=== PATIENT | female | born 1935 | race Caucasian/White ===

== ENCOUNTER → 2016-07-20 | Outpatient (CLI) | payer MEDICARE ==
[~2016-07-20] MED LIST: 'XANAX0.25 MG; ALLOPURINOL100 MG; AMARYL4 MG; ANTIVERT25 MG; ASPI-COR81 M1 PO; CORGARD20 MG; DIOVAN80 MG; DIOVAN80 MG PO; EPA FISH OIL1000 MG; GEMCOR600 MG; KLOR-CON 1010 ME1 PO; LANTUS100 U/ML SC; LASIX40 MG PO; LISINOPRIL20 MG PO; LOTREL 5 MG-101 CAP PO; Lopressor25 MG PO; MACROBID100 M1 PO; METFORMIN500 MG; MICRONASE5 MG; NOVOLOG FLEX100 U/ML SC; OMEGA 31000 MG; SIMVASTATIN40 MG; SYNTHROID25 MCG PO; TRAZODONE50 MG PO; VITAMIN D1000 IU; VITAMIN D1000 IU PO
== END | disposition home or self-care (01) ==
LOC: RAD 08:59
DX: S23.41XA Sprain of ribs, initial encounter (principal); R07.81 Pleurodynia

== ENCOUNTER → 2017-05-28 | Outpatient (CLI) | payer MEDICARE | LOC: RESCLI 01:45 | DX: E11.65 Type 2 diabetes mellitus with hyperglycemia (principal); I25.10 Atherosclerotic heart disease of native coronary artery without angina pectoris; I10 Essential (primary) hypertension; E78.5 Hyperlipidemia, unspecified; E03.9 Hypothyroidism, unspecified; F32.9 Major depressive disorder, single episode, unspecified; Z79.4 Long term (current) use of insulin; Z88.2 Allergy status to sulfonamides ==

== ENCOUNTER → 2017-08-06 | Outpatient (CLI) | payer MEDICARE | END | disposition home or self-care (01) | LOC: RESCLI 00:37 | DX: I10 Essential (primary) hypertension (principal); F32.9 Major depressive disorder, single episode, unspecified; E78.00 Pure hypercholesterolemia, unspecified; E55.9 Vitamin D deficiency, unspecified; M1A.9XX0 Chronic gout, unspecified, without tophus (tophi); E03.9 Hypothyroidism, unspecified; E11.65 Type 2 diabetes mellitus with hyperglycemia; I25.10 Atherosclerotic heart disease of native coronary artery without angina pectoris; E78.5 Hyperlipidemia, unspecified; Z79.4 Long term (current) use of insulin; Z88.2 Allergy status to sulfonamides ==

== ENCOUNTER → 2018-05-26 | Outpatient (CLI) | payer MEDICARE ==
[2018-05-26 15:51] LABS: BILIRUBIN NEGATIVE (NEGATIVE); BLOOD TRACE-LYSED (NEGATIVE); CLARITY SL CLOUDY (CLEAR); COLOR YELLOW (YELLOW); GLUCOSE NEGATIVE (NEGATIVE); KETONE NEGATIVE (NEGATIVE); LEUKO ESTERASE 3+ (NEGATIVE); NITRITE NEGATIVE (NEGATIVE); PH 5.5 (5.0-9.0); UROBILINOGEN 0.2 E.U./dl (0.2-1.0)
[2018-05-26 15:58] LABS: BACTERIA 2+; WBC TNTC wbc/hpf (0-5)
== END | disposition home or self-care (01) ==
LOC: LAB 14:56
PROVIDERS: Internal Medicine Nephrology
DX: N18.3 Chronic kidney disease, stage 3 (moderate) (principal); N28.1 Cyst of kidney, acquired

== ENCOUNTER → 2018-07-15 | Outpatient (CLI) | payer MEDICARE | END | disposition home or self-care (01) | LOC: RESCLI 02:15 | DX: I10 Essential (primary) hypertension (principal); F32.9 Major depressive disorder, single episode, unspecified; E78.00 Pure hypercholesterolemia, unspecified; E55.9 Vitamin D deficiency, unspecified; M1A.9XX0 Chronic gout, unspecified, without tophus (tophi); E03.9 Hypothyroidism, unspecified; E11.65 Type 2 diabetes mellitus with hyperglycemia; I25.10 Atherosclerotic heart disease of native coronary artery without angina pectoris; Z79.4 Long term (current) use of insulin; Z79.899 Other long term (current) drug therapy; Z90.710 Acquired absence of both cervix and uterus; Z95.5 Presence of coronary angioplasty implant and graft; Z90.49 Acquired absence of other specified parts of digestive tract; Z88.2 Allergy status to sulfonamides ==

== ENCOUNTER 2019-03-14 20:50 | Inpatient (IN) | payer MEDICARE ==
[~2019-03-14] VITALS: Ht 162.5 cm; Wt 96.0 kg
[~2019-03-14 20:50] MED LIST changes: -ALLOPURINOL100 MG; +ALLOPURINOL100 MG PO; +NOVOLOG FL100 UNIT/2 SQ; -NOVOLOG FLEX100 U/ML SC; -SIMVASTATIN40 MG; +SIMVASTATIN40 MG PO
[2019-03-14 20:57] VITALS: BP 152/74
[2019-03-14 21:10] LABS: BASO % 0.2 % (0.0-1.0); EOS # 0.2 10*3/uL (0.0-0.4); EOS % 1.6 % (1.0-4.0); HEMATOCRIT 31.1 % (37.0-47.0); HEMOGLOBIN 10.3 g/dl (12.0-16.0); LYMPH # 1.7 10*3/uL (1.3-4.4); LYMPH % 13.9 % (27.0-41.0); MEAN CELL VOLUME 87.6 fl (81.0-99.0); MEAN CORPUSCULAR HGB CONC 33.1 g/dl (33.0-37.0); MEAN PLATELET VOLUME 9.5 fl (9.6-12.3); MONO # 0.8 10*3/uL (0.1-1.0); MONO % 6.4 % (3.0-9.0); NEUT # 9.4 10*3/uL (2.3-7.9); NEUT % 77.5 % (47.0-73.0); PLATELET COUNT AUTOMATED 225 10*3/uL (130-400); RED BLOOD COUNT 3.55 10*6/uL (4.10-5.10); RED CELL DISTRI WIDTH 16.2 % (0-14.5); WHITE BLOOD COUNT 12.2 10*3/uL (4.8-10.8)
[2019-03-14 21:21] LABS: ACT PARTIAL THROMBO TIME 28.5 SECONDS (20.0-32.1); INTERNATIONAL NORM RATIO 1.2 (2.0-3.5)
[2019-03-14 21:27] LABS: ALBUMIN 2.8 gm/dl (3.1-4.5); ALKALINE PHOSPHATASE 185 U/L (45-117); BUN 31 mg/dl (7-24); CHLORIDE 103 mmol/L (98-107); CREATININE 1.77 mg/dL (0.55-1.02); SGOT/AST 21 IU/L (3-35); SGPT/ALT 24 U/L (12-78); SODIUM 135 mmol/L (136-145); TOTAL PROTEIN 8.3 gm/dL (6.4-8.2)
[2019-03-14 21:28] LABS: TROPONIN I < 0.015 ng/ml (<0.045)
--- NOTE | 2019-03-14 21:45 | NUR ---
SITTING UP IN BED CONVERSING WITH FRIENDS. APPEARS MUCH MORE RELAXED AND DENIES ANY NEEDS. SIDE RAIL X 1 AND CALL LIGHT WITHIN REACH. FLU SWAB OBTAINED AND SENT. WILL CONTINUE TO MONITOR.
--- NOTE | 2019-03-14 22:38 | NUR ---
BGL 202. DOES NOT WANT HUMALOG AT NIGHT BECAUSE SHE NORMALLY ONLY TAKES LANTUS AT NIGHT.
--- NOTE | 2019-03-14 23:24 | NUR ---
DR HANCOCK IS AT THE BEDSIDE.
[2019-03-15] VITALS (9 sets, daily range): BP systolic 134–166; BP diastolic 39–78
--- NOTE | 2019-03-15 00:14 | NUR ---
AMBULATED TO BATHROOM WITH SUPERVISION. URINATED AND CLEAN MAXI PAD PROVIDED REQUESTED. SUPERVISED BACK TO BED. SOB BUT RECOVERED QUICKLY ONCE IN BED.
--- NOTE | 2019-03-15 00:59 | NUR ---
SNACK PROVIDED REQUESTED.
[2019-03-15] MEDS ORDERED: CITALOPRAM20 MG PO (01:43)
[2019-03-15] MEDS ORDERED: AMLODIPINE BESY10 MG PO (01:43)
[2019-03-15] MEDS ORDERED: BUMETANIDE2 MG PO (01:43)
[2019-03-15] MEDS ORDERED: FAMOTIDINE20 M1 PO (01:44)
[2019-03-15 03:07] LABS: BASO % 0.2 % (0.0-1.0); EOS # 0.1 10*3/uL (0.0-0.4); EOS % 1.3 % (1.0-4.0); HEMATOCRIT 28.5 % (37.0-47.0); HEMOGLOBIN 9.3 g/dl (12.0-16.0); LYMPH # 1.3 10*3/uL (1.3-4.4); LYMPH % 14.6 % (27.0-41.0); MEAN CELL VOLUME 87.7 fl (81.0-99.0); MEAN CORPUSCULAR HGB 28.6 pg (27.0-31.0); MEAN CORPUSCULAR HGB CONC 32.6 g/dl (33.0-37.0); MEAN PLATELET VOLUME 9.6 fl (9.6-12.3); MONO # 0.7 10*3/uL (0.1-1.0); MONO % 7.9 % (3.0-9.0); NEUT # 6.9 10*3/uL (2.3-7.9); NEUT % 75.7 % (47.0-73.0); PLATELET COUNT AUTOMATED 176 10*3/uL (130-400); RED BLOOD COUNT 3.25 10*6/uL (4.10-5.10); RED CELL DISTRI WIDTH 16.5 % (0-14.5); WHITE BLOOD COUNT 9.1 10*3/uL (4.8-10.8)
--- NOTE | 2019-03-15 03:15 | NUR ---
NEURO: A&O X 4 HEENT: TONGUE DRY, HO-CHUNK (R>L) RESP: DIMINISHED, TACHYPNIC WITH EXERTION OTHERWISE REGULAR AND EASY CARDIAC: S1, S2, REGULAR, NSR SKIN: WARM, DRY, APPROPRIATE FOR ETHNICITY BLE: TRACE EDEMA
--- NOTE | 2019-03-15 03:18 | NUR ---
REPOSITIONED SELF TO LEFT SIDE. PULSE OXIMETRY READING 90% ON 2L VIA N/C IN THIS POSITION, SO OXYGEN INCREASED TO 4 L VIA N/C WITH IMPROVEMENT TO 93%.
[2019-03-15 03:22] LABS: ALBUMIN 2.7 gm/dl (3.1-4.5); CREATININE 1.75 mg/dL (0.55-1.02); PHOSPHOROUS 3.7 mg/dL (2.5-4.9); POTASSIUM 3.6 mmol/L (3.5-5.1); TOTAL PROTEIN 7.7 gm/dL (6.4-8.2)
--- NOTE | 2019-03-15 04:30 | NUR ---
AMBULATORY TO THE BATHROOM WITH SUPERVISION BY MINERAL WOOL INSULATION SUPERVISOR.
--- NOTE | 2019-03-15 06:57 | NUR ---
BGL 228. AMBULATORY TO THE BATHROOM WITH SUPERVISION.
--- NOTE | 2019-03-15 07:10 | NUR ---
REPORT FROM NIGEL DENT AT THIS TIME. PATIENT LAYING IN BED AT THIS TIME APPEARS TO BE RESTING.
--- NOTE | 2019-03-15 08:17 | NUR ---
BEDSIDE GIVEN TO BOGDAN DENT AT THIS TIME.
--- NOTE | 2019-03-15 09:05 | NUR ---
A 83, admitted to 5E, under the services of BOBO Neil DO with a diagnosis of CHF. Chief complaint is SOB. Patient arrived via stretcher from ER. Monitor applied. Initial assessment completed. Vital signs taken and recorded. BOBO NEIL DO notified of admission to the unit. Orders received. See assessment for past medical history, medications and allergies. Patient and/or family oriented to unit. visitation policy reviewed. Clothing/patient valuable form completed. STAN REVELES
--- NOTE | 2019-03-15 19:40 | NUR ---
PT SLEEPING IN BED, AWAKENS EASILY. RESP-EASY AND REGULAR. NO C/O AT THIS TIME. CALL LIGHT IN REACH. SEE SHIFT ASSESSMENT.
--- NOTE | 2019-03-15 22:00 | NUR ---
ASSISTED UP TO BATHROOM AND BACK TO BED. BSG-195, SEE EMAR. TOLERATED ROUTINE MED WITH NO PROBLEM. CALL LIGHT IN REACH. OXYGEN IN USE.
[2019-03-16] VITALS: BP 132/60
--- NOTE | 2019-03-16 00:20 | NUR ---
PT RESTING IN BED. RESP-EASY AND REGULAR. NO C/O AT THIS TIME. CALL LIGHT IN REACH. SEE SHIFT ASSESSMENT.
--- NOTE | 2019-03-16 03:23 | NUR ---
24 HR chart check completed.
--- NOTE | 2019-03-16 04:00 | NUR ---
SLEEPING IN BED. RESP-EASY AND REGULAR. CALL LIGHT IN REACH.
--- NOTE | 2019-03-16 05:45 | NUR ---
ASSISTED TO BATHROOM AND BACK TO BED. BSG-111, SEE EMAR. TOLERATED ROUTINE MED WITH NO PROBLEM. NO C/O AT THIS TIME. CALL LIGHT IN REACH.
[2019-03-16 07:06] LABS: BASO % 0.3 % (0.0-1.0); EOS # 0.3 10*3/uL (0.0-0.4); EOS % 3.6 % (1.0-4.0); HEMATOCRIT 29.6 % (37.0-47.0); HEMOGLOBIN 9.6 g/dl (12.0-16.0); LYMPH # 1.1 10*3/uL (1.3-4.4); MEAN CELL VOLUME 89.2 fl (81.0-99.0); MEAN CORPUSCULAR HGB 28.9 pg (27.0-31.0); MEAN CORPUSCULAR HGB CONC 32.4 g/dl (33.0-37.0); MEAN PLATELET VOLUME 10.1 fl (9.6-12.3); MONO # 0.7 10*3/uL (0.1-1.0); MONO % 8.8 % (3.0-9.0); NEUT # 5.6 10*3/uL (2.3-7.9); PLATELET COUNT AUTOMATED 193 10*3/uL (130-400); RED BLOOD COUNT 3.32 10*6/uL (4.10-5.10); RED CELL DISTRI WIDTH 16.5 % (0-14.5); WHITE BLOOD COUNT 7.6 10*3/uL (4.8-10.8)
[2019-03-16 07:25] LABS: CREATININE 1.54 mg/dL (0.55-1.02); POTASSIUM 3.7 mmol/L (3.5-5.1)
[2019-03-16 07:35] VITALS: BP 140/49
[2019-03-16 11:39] VITALS: BP 129/45
--- NOTE | 2019-03-16 14:05 | NUR ---
Route Rider Supervisor in to talk to patient. Patient states lives at HOME with ALONE. There are NO steps in the home. Physician: ADITI Pharmacy: [facility] Home health services: [facility] Patient's level of ADLs: INDEPENDENT Patient has working utilities: YES DME: [facility] Follow-up physician's appointment after d/c: WILL BE MADE BY HOSPITALIST NURSE DIRECTOR ON DISCHARGE Does patient want to access PORTAL?: NO Discharge plan PT LIVES AT HOME ALONE AND IS INDEPENDENT IN CARE. STATES SHE HAS [facility], NURSE ONCE A WEEK, PT TWICE A WEEK, STATES SHE WOULD LIKE TO HAVE AIDS. WANTS TO RETURN HOME ON DISCHARGE WITH CONTINUED HOME HEALTH. WILL HAVE A RIDE HOME ON DISCHARGE. WILL CONTINUE TO FOLLOW.. MARNI AGUIRRE
[2019-03-16 16:00] VITALS: BP 153/56
[2019-03-16 20:00] VITALS: BP 144/47
--- NOTE | 2019-03-16 20:40 | NUR ---
ASSISTED UP TO BATHROOM AND BACK TO BED. RESP-EASY AND REGULAR. OXYGEN IN USE. BSG-158, SEE EMAR. NO C/O AT THIS TIME. TOLERATED ROUTINE MED WITH NO PROBLEM. CALL LIGHT IN REACH. SEE SHIFT ASSESSMENT.
--- NOTE | 2019-03-16 22:20 | NUR ---
SLEEPING IN BED. RESP-EASY AND REGULAR. OXYGEN IN USE. CALL LIGHT IN REACH.
[2019-03-17] VITALS: BP 134/42
--- NOTE | 2019-03-17 04:00 | NUR ---
SLEEPING IN BED. RESP-EASY AND REGULAR. CALL LIGHT IN REACH.
--- NOTE | 2019-03-17 06:00 | NUR ---
TOLERATED ROUTINE MED WITH NO PROBLEM. BSG-109, SEE EMAR. NO C/O AT THIS TIME. CALL LIGHT IN REACH.
[2019-03-17 06:10] LABS: BASO % 0.3 % (0.0-1.0); EOS # 0.3 10*3/uL (0.0-0.4); EOS % 3.1 % (1.0-4.0); HEMATOCRIT 30.4 % (37.0-47.0); HEMOGLOBIN 9.8 g/dl (12.0-16.0); LYMPH # 1.7 10*3/uL (1.3-4.4); LYMPH % 18.5 % (27.0-41.0); MEAN CELL VOLUME 88.1 fl (81.0-99.0); MEAN CORPUSCULAR HGB 28.4 pg (27.0-31.0); MEAN CORPUSCULAR HGB CONC 32.2 g/dl (33.0-37.0); MEAN PLATELET VOLUME 10.2 fl (9.6-12.3); MONO # 0.8 10*3/uL (0.1-1.0); MONO % 8.8 % (3.0-9.0); NEUT # 6.5 10*3/uL (2.3-7.9); NEUT % 68.9 % (47.0-73.0); PLATELET COUNT AUTOMATED 217 10*3/uL (130-400); RED BLOOD COUNT 3.45 10*6/uL (4.10-5.10); RED CELL DISTRI WIDTH 16.3 % (0-14.5); WHITE BLOOD COUNT 9.4 10*3/uL (4.8-10.8)
[2019-03-17 07:39] LABS: CREATININE 1.68 mg/dL (0.55-1.02); POTASSIUM 3.8 mmol/L (3.5-5.1)
[2019-03-17 08:00] VITALS: BP 144/50
[2019-03-17 12:00] VITALS: BP 130/58
--- NOTE | 2019-03-17 12:55 | NUR ---
PT STATES SHE WANTS TO GO HOME WITH [facility] OF [facility]. PER ID MEETING THIS AM PT IS POSSIBLE ID TODAY. RESUME ORDER FAXED TO [facility]. WILL CONTINUE TO FOLLOW.
--- NOTE | 2019-03-17 15:47 | NUR ---
PHYSICAL THERAPY Physical therapy evaluation attemtped. Patient refusing at this time, stating "I get therapy at home, by the [facility] and I'm supposed to go home tomorrow. They're weaning me off the oxygen." Patient agreeable for PT to try evaluation at a later date. Thank you. Marj Noyola,PT,DPT.
--- NOTE | 2019-03-17 15:51 | NUR ---
Occupational Therapy evaluation offered this date. Patient reports that she may be discharged home tomorrow and to recheck tomorrow. Kathi Fletcher OTR/L
[2019-03-17 16:00] VITALS: BP 136/43
--- NOTE | 2019-03-17 19:40 | NUR ---
PT SPO2 ON ROOM AIR 81% PATIENT IN NO DISTRESS. PLACED ON 2LNC, SPO2 INCREASED TO 88%, INCREASED TO 3LNC- SPO2 INCREAED TO 92%. DR CLARKE CALLED AND MADE AWARE.
[2019-03-17 20:00] VITALS: BP 139/52
--- NOTE | 2019-03-17 23:53 | NUR ---
24 HR chart check completed.
[2019-03-18] VITALS: BP 133/50
[2019-03-18 06:29] LABS: BASO % 0.4 % (0.0-1.0); EOS # 0.2 10*3/uL (0.0-0.4); EOS % 2.8 % (1.0-4.0); HEMATOCRIT 29.2 % (37.0-47.0); HEMOGLOBIN 9.2 g/dl (12.0-16.0); LYMPH # 1.4 10*3/uL (1.3-4.4); LYMPH % 16.4 % (27.0-41.0); MEAN CELL VOLUME 89.3 fl (81.0-99.0); MEAN CORPUSCULAR HGB 28.1 pg (27.0-31.0); MEAN CORPUSCULAR HGB CONC 31.5 g/dl (33.0-37.0); MEAN PLATELET VOLUME 10.5 fl (9.6-12.3); MONO # 0.7 10*3/uL (0.1-1.0); MONO % 8.9 % (3.0-9.0); NEUT # 5.9 10*3/uL (2.3-7.9); NEUT % 71.1 % (47.0-73.0); PLATELET COUNT AUTOMATED 204 10*3/uL (130-400); RED BLOOD COUNT 3.27 10*6/uL (4.10-5.10); RED CELL DISTRI WIDTH 16.1 % (0-14.5); WHITE BLOOD COUNT 8.3 10*3/uL (4.8-10.8)
[2019-03-18 06:50] LABS: CREATININE 1.72 mg/dL (0.55-1.02); POTASSIUM 3.9 mmol/L (3.5-5.1)
[2019-03-18 08:00] VITALS: BP 138/49
--- NOTE | 2019-03-18 08:00 | NUR ---
PATIENT RESTING QUIETLY IN BED. NO DISTRESS NOTED. POX 93% VIA 4LNC. LUNGS DIMINISHED T/O. WILL CONTINUE TO MONITOR. VSS. CALL LIGHT WITHIN REACH.
--- NOTE | 2019-03-18 09:17 | NUR ---
Occupational Therapy evaluation completed on 5 with full eval to follow. Precautions include O2 use @4 lpm,[place] DEE-NI', impaired activity tolerance,impaired ADls, moderate complexity level 19556 via chart review, testing and evaluation. Recommend OT per POC and home health SN, OT,PT. Thank you. Kathi Fletcher OTR/L
--- NOTE | 2019-03-18 09:17 | NUR ---
PHYSICAL THERAPY Physical therapy evaluation complete, 5E. Low complexity PT evaluation (15881) per chart review and evaluation. PT to progress transfers, gait, and balance per POC. Recommend patient return home with home health PT services at discharge. Thank you. Marj Noyola,PT,DPT.
--- NOTE | 2019-03-18 11:30 | NUR ---
RESPIRATORY IN TO SEE PATIENT REGARDING ASSESSMENT FOR HOME 02.
--- NOTE | 2019-03-18 11:30 | NUR ---
BSG 253. 6 UNITS OF INSULIN GIVEN PER S/S. WILL CONTINUE TO MONITOR.
--- NOTE | 2019-03-18 11:39 | NUR ---
patient removed from oxygen pre test, ar rest on the bed on room air their spo2 was 80-82% with dips to 79%. patient placed on 2l nasal cannula/ spo2:86%. 3l nasal cannula 88-89%. 4l nasal cannula 92-93%. this was all done with patient sitting up on the edge of the bed. with excertion the patient's spo2 dipped down to 88% on 4l nasal cannula. she was titrated to 5 l nasal cannula and they were able to sustain a spo2 of 90-94% during excertion and at rest after the test. after a couple minutes patient was able sustain at 4 l nasal cannula at 93% spo2. nurse alerted/ doctor aware.
[2019-03-18 12:00] VITALS: BP 145/42
--- NOTE | 2019-03-18 13:31 | NUR ---
PT STATES SHE STILL WANTS TO GO HOME WITH [facility] ON DISCHARGE. WILL CONTINUE TO FOLLOW.
[2019-03-18 16:00] VITALS: BP 105/92
--- NOTE | 2019-03-18 16:30 | NUR ---
BSG 249. 3 UNITS ON INSULIN GIVEN PER S/S. WILL CONTINUE TO MONITOR.
[2019-03-18 20:00] VITALS: BP 121/40
--- NOTE | 2019-03-18 21:40 | NUR ---
SPOKE WITH DR. CLARKE AT THIS TIME. PATIENT STATES THAT SHE FEELS VERY ANXIOUS THAT SHE WILL HAVE TO GO HOME WITH OXYGEN AND JUST ISN'T FEELING WELL. SHE STATES THAT SHE JUST NEEDS TO CALM DOWN. NOTIFIED DR. CLARKE AND EXPLAINED THAT PATIENTS BREATHING IS THE BEST AND WAS WONDERING IF WE COULD GET SOMETHING MILD FOR ANXIETY. 25MG VISTARIL ORDERED AT THIS TIME X ONE DOSE
--- NOTE | 2019-03-18 21:54 | NUR ---
PATIENT YELLED OUT HELP I CAN'T BREATHE. PATIENT SEVERELY ANXIOUS, JUST CAME BACK FROM USING BATHROOM. HOB ELEVATED, SPO2=77% ON 4L NC. O2 INCREASED TO 6L NC, SPO2 92-93%. VISTARIL JOSE CRUZN AT THIS TIME FOR ANXIOUSNESS. CALL LIGHT LEFT WITHIN REACH. PATIENT'S NURSE Julito,,Y-RN MADE AWARE.
--- NOTE | 2019-03-18 22:46 | NUR ---
IN TO REASSESS PATIENT. PATIENT RESTING IN BED. STATES SHE FEELS MUCH BETTER PULSE OX IS 95% ON 6L. EXPLAINED TO PATIENT THAT WE WILL KEEP HER ON 6L FOR TONIGHT. SHE STATED THAT SHE IS GOING TO GET SOME REST AND HOPEFULLY FEEL BETTER IN THE MORNING. CALL LIGHT WITHIN REACH, WILL CONTINUE TO MONITOR
[2019-03-19] VITALS: BP 143/55
--- NOTE | 2019-03-19 01:58 | NUR ---
PATIENT SLEEPING. NO DISTRESS NOTED. 6L NC INTACT. CALL LIGHT WITHIN REACH, WILL MONITOR
--- NOTE | 2019-03-19 02:13 | NUR ---
24 HR chart check completed.
[2019-03-19 07:02] LABS: BASO % 0.4 % (0.0-1.0); EOS # 0.3 10*3/uL (0.0-0.4); EOS % 3.1 % (1.0-4.0); HEMATOCRIT 28.8 % (37.0-47.0); HEMOGLOBIN 9.1 g/dl (12.0-16.0); LYMPH # 1.5 10*3/uL (1.3-4.4); LYMPH % 18.1 % (27.0-41.0); MEAN CELL VOLUME 88.9 fl (81.0-99.0); MEAN CORPUSCULAR HGB 28.1 pg (27.0-31.0); MEAN CORPUSCULAR HGB CONC 31.6 g/dl (33.0-37.0); MEAN PLATELET VOLUME 10.2 fl (9.6-12.3); MONO # 0.7 10*3/uL (0.1-1.0); NEUT # 5.5 10*3/uL (2.3-7.9); NEUT % 68.6 % (47.0-73.0); PLATELET COUNT AUTOMATED 222 10*3/uL (130-400); RED BLOOD COUNT 3.24 10*6/uL (4.10-5.10); RED CELL DISTRI WIDTH 15.9 % (0-14.5)
[2019-03-19 07:17] LABS: CREATININE 1.9 mg/dL (0.55-1.02); POTASSIUM 3.8 mmol/L (3.5-5.1)
[2019-03-19 08:00] VITALS: BP 139/55
--- NOTE | 2019-03-19 08:12 | NUR ---
PATIENT RESTING QUIETLY IN BED. NO DISTRESS NOTED. 02 IN USE. POX 97% VIA 4LNC. LUNGS DIMINISHED T/O. WILL CONTINUE TO MONITOR. CALL LIGHT WITHIN REACH.
--- NOTE | 2019-03-19 08:14 | NUR ---
IN TO SEE PATIENT.
--- NOTE | 2019-03-19 09:00 | NUR ---
case management visits with patient, discussed a discharge plan with patient including a short term senior care for rehab prior to returning home, she stated she was previously at a SNF and she only has 30 medicare days left and if she was able to return home that is what she would like to do, she would like to save the rest of her medicare days in case she would become sicker and need to use them, she will return home with [facility],[place] will be notified when patient is medically stable for discharge
--- NOTE | 2019-03-19 09:20 | NUR ---
PHYSICAL THERAPY Patient seen this am 1:1 for therapy visit and was sitting up in bedside arm chair upon therapist arrival. Patient presented with continuos O2-5L via NC and report mild B ankle edema. Patient SpO2 98%, HR 96 bpm at rest as patient transfers sit to stand CGA x 1. Patient ambulates with use of wh walker, 75'x 1, CGA, demonstrating very slow, steady zeus with even stride. Patient unsteady during 180 degree turns and during backward gait 5'x 2, requiring v/c for improved wh walker safety / step sequence due to patient picking up walker with increased velocity while turning. Patient also demonstrated mild fatigue and received v/c for purse lip breathing technique while returning to bedside chair. Patient SpO2 90%, HR 110 bpm and returned to near baseline following 1 minute seated rest. Patient remained in chair with call light and instructed to ask for assistance if needing to get up. Patient voiced her understanding and will continue per POC as tolerated, total treatment time 16 minutes. Deven Taylor, PARTS WASHER
--- NOTE | 2019-03-19 10:01 | NUR ---
PATIENT TAKEN OFF FLOOR VIA W/C FOR SCHEDULED CT.
--- NOTE | 2019-03-19 10:10 | NUR ---
patient leaving room upon arrival for CT scan. will check back at later time. susan owen/jn
[2019-03-19 12:00] VITALS: BP 102/78
--- NOTE | 2019-03-19 13:48 | NUR ---
OT NOTE PATIENT SUPINE IN BED UPON ARRIVAN WITH INCREASED FATIGUE THIS DAY AND REQUESTED TO BE SEEN AT LATER DATE/TIME. WILL CONTINUE WITH THERAPY WHEN APPROPRIATE. BHUMIKA MENDOZA/Melissa
--- NOTE | 2019-03-19 13:53 | NUR ---
NOTIFIED OF CONSULT.
--- NOTE | 2019-03-19 13:58 | NUR ---
'S OFFICE CALLED AT THIS TIME REGARDING CONSULT.
[2019-03-19 16:00] VITALS: BP 135/50
[2019-03-19 20:00] VITALS: BP 146/51
[2019-03-20] VITALS: BP 140/54
--- NOTE | 2019-03-20 04:17 | NUR ---
PATIENT MEDICATED WITH IV ZOFRAN FOR COMPLAINTS OF NAUSEA AND VOMITING.
--- NOTE | 2019-03-20 05:48 | NUR ---
PATIENT FEELING BETTER AT THIS TIME.
[2019-03-20 08:00] VITALS: BP 148/58
[2019-03-20 09:00] LABS: BASO % 0.3 % (0.0-1.0); EOS # 0.3 10*3/uL (0.0-0.4); EOS % 2.9 % (1.0-4.0); HEMATOCRIT 28.9 % (37.0-47.0); HEMOGLOBIN 9.3 g/dl (12.0-16.0); LYMPH # 1.3 10*3/uL (1.3-4.4); LYMPH % 14.4 % (27.0-41.0); MEAN CELL VOLUME 89.2 fl (81.0-99.0); MEAN CORPUSCULAR HGB 28.7 pg (27.0-31.0); MEAN CORPUSCULAR HGB CONC 32.2 g/dl (33.0-37.0); MONO # 0.6 10*3/uL (0.1-1.0); MONO % 6.6 % (3.0-9.0); NEUT # 6.6 10*3/uL (2.3-7.9); NEUT % 75.5 % (47.0-73.0); PLATELET COUNT AUTOMATED 216 10*3/uL (130-400); RED BLOOD COUNT 3.24 10*6/uL (4.10-5.10); RED CELL DISTRI WIDTH 15.9 % (0-14.5); WHITE BLOOD COUNT 8.7 10*3/uL (4.8-10.8)
--- NOTE | 2019-03-20 09:00 | NUR ---
case management visits with patient, discussed with her the doctor's recommendation for her to go to a short term group home prior to returning home, patient did not want to do this due to not having many skilled days, also discussed with her an LTAC, and she was receptive to this, given choice of facilities she chose [facility], social media project manager will make a referral to [facility]
[2019-03-20 09:23] LABS: CREATININE 1.74 mg/dL (0.55-1.02); POTASSIUM 3.9 mmol/L (3.5-5.1)
--- NOTE | 2019-03-20 09:23 | NUR ---
IN HOME SALES CONSULTANT received notice of patient being agreeable to LTAC. IN HOME SALES CONSULTANT contacted Laura at [facility] for new referral. -LUCILA Aguilar
[2019-03-20 12:00] VITALS: BP 127/53
--- NOTE | 2019-03-20 12:31 | NUR ---
LUCILA received notice that the patient was denied by [employer]. The patient does not meet criteria.-LUCILA Aguilar
--- NOTE | 2019-03-20 13:17 | NUR ---
Denisha was treated by occupational therapy on 03/20/19 from 12:50-1:15. She was treated for decreased activity tolerance, decreased functional mobility, and decreased safety awareness. Denisha was able to complete bedmobility independently from supine to sit. She was able to complete sit - stand and functional transfers with supervision. She tolerated standing x 3 minutes to complete a hand washing task. Isabela c/o SOB with minimal exertion and is currently wearing 3 L O2. Energy conservation and pursed lip breathing reviewed/demonstrated with patient. She is able to complete pursed lip breathing independently. Isabela has adaptive equipment at home to assist with lower body dressing but states she mostly wears night gowns. She does not have a shower bench but is currently reviewing her options with her [facility] company. Continue with occupational therapy to address the patient's decreased activity tolerance, decreased functional mobility, and decreased safety awareness to improve her ADL and functional transfer independence. Kalee Agustin OTR/L
--- NOTE | 2019-03-20 13:46 | NUR ---
PHYSICAL THERAPY CO-SIGN I approve of the Physical Therapy notes written above. JAQUAN BOWMAN PT,DPT
--- NOTE | 2019-03-20 13:50 | NUR ---
PATIENT COMPLAINS OF NAUSEA. MEDICATED PER ORDER. VERBALIZERD RELIEF. VOICES NO OTHER CONCERNS AT THIS TIME. RESTING IN BED. CALL LIGHT WITHIN REACH.
--- NOTE | 2019-03-20 13:52 | NUR ---
PHYSICAL THERAPY Patient was resting comfortable supine in bed this pm when approached for therapy visit and stated her stomach has been upset all day. Patient also stated she had just returned from the bathroom and did not feel up to doing any treatment at this time. Will continue per POC as tolerated. Deven Taylor, WIRELESS SALES CONSULTANT
--- NOTE | 2019-03-20 15:03 | NUR ---
OCCUPATIONAL THERAPY CO-SIGN I approve of the Occupational Therapy notes written above. ASHWIN RECIO OTR/Melissa
[2019-03-20 16:00] VITALS: BP 136/57
--- NOTE | 2019-03-20 16:12 | NUR ---
Patient resting quietly with no c/o discomfort. Respirations easy and regular. Vital signs stable. No overt distress. SUREKHA THOMPSON
--- NOTE | 2019-03-20 17:53 | NUR ---
Patient resting quietly with no c/o discomfort. Respirations easy and regular. Vital signs stable. No overt distress. Call light within reach. HISSOM,MONI
[2019-03-20 20:00] VITALS: BP 133/87
--- NOTE | 2019-03-20 20:07 | NUR ---
24 HR chart check completed.
--- NOTE | 2019-03-20 20:30 | NUR ---
RESTING IN BED WITH NO DISTRESS NOTED. RESPIRATIONS EASY. LUNGS DIMINISHED WITH CRACKLES. PULSE OX 92% 3L HUMIDIFIED. TRACE BLE EDEMA. OFFERED AND EDUCATED REGARDING TEDS, PLACED AT BEDSIDE. CALL LIGHT WITHIN REACH. NO VOICED COMPLAINTS
[2019-03-21] VITALS: BP 144/53
--- NOTE | 2019-03-21 | NUR ---
SLEEPING. NO DISTRESS NOTED. RESPIRATIONS EASY. VSS. CALL LIGHT WITHIN REACH
--- NOTE | 2019-03-21 06:00 | NUR ---
SLEPT THROUGHOUT NIGHT WITH NO DISTRESS NOTED. RESPIRATIONS EASY. CALL LIGHT WITHIN REACH. NO VOICED COMPLAINTS THIS SHIFT
[2019-03-21 06:31] LABS: BASO % 0.4 % (0.0-1.0); EOS # 0.3 10*3/uL (0.0-0.4); HEMATOCRIT 28.1 % (37.0-47.0); HEMOGLOBIN 9.2 g/dl (12.0-16.0); LYMPH # 1.3 10*3/uL (1.3-4.4); LYMPH % 15.1 % (27.0-41.0); MEAN CELL VOLUME 88.1 fl (81.0-99.0); MEAN CORPUSCULAR HGB 28.8 pg (27.0-31.0); MEAN CORPUSCULAR HGB CONC 32.7 g/dl (33.0-37.0); MEAN PLATELET VOLUME 10.1 fl (9.6-12.3); MONO # 0.9 10*3/uL (0.1-1.0); MONO % 10.1 % (3.0-9.0); PLATELET COUNT AUTOMATED 225 10*3/uL (130-400); RED BLOOD COUNT 3.19 10*6/uL (4.10-5.10); RED CELL DISTRI WIDTH 15.9 % (0-14.5); WHITE BLOOD COUNT 8.4 10*3/uL (4.8-10.8)
[2019-03-21 06:38] LABS: CREATININE 1.8 mg/dL (0.55-1.02)
[2019-03-21 08:00] VITALS: BP 146/48
[2019-03-21 12:00] VITALS: BP 126/45
[2019-03-21 16:00] VITALS: BP 139/50
[2019-03-21 20:00] VITALS: BP 147/55
--- NOTE | 2019-03-21 23:43 | NUR ---
PA TAKING PATIENTS VITALS. ON 3L NC PATIENTS SATTING ONLY 83%. PATIENT STATED SHE WAS JUST UP ON THE SIDE OF THE BED PULLING HERSELF UP. PATIENT INCREASED TO 6L NC UP TO 91%. RESPIRATORY CALLED. OXYMIZER PLACED ON PATIENT AT 6L. PATIENT HOLDING STEADY AT 93%. PATIENT IN ABSOLUTELY NO DISTRESS. PATIENT DENIES SHORTNESS OF BREATH. WILL CONTINUE TO MONITOR
[2019-03-22] VITALS: BP 136/45
--- NOTE | 2019-03-22 00:57 | NUR ---
PATIENT RESTING IN BED. SNORING RESPIRATIONS. NO DISTRESS NOTED. CALL LIGHT WITHIN REACH, WILL MONITOR
--- NOTE | 2019-03-22 01:11 | NUR ---
24 HR chart check completed.
--- NOTE | 2019-03-22 02:00 | NUR ---
PATIENT SLEEPING. OXYMIZER INTACT. NO DISTRES NOTED. WILL MONITOR
[2019-03-22 06:54] LABS: CREATININE 1.9 mg/dL (0.55-1.02); POTASSIUM 4.2 mmol/L (3.5-5.1)
[2019-03-22 07:02] LABS: BASO % 0.2 % (0.0-1.0); EOS # 0.3 10*3/uL (0.0-0.4); EOS % 3.8 % (1.0-4.0); HEMATOCRIT 27.5 % (37.0-47.0); LYMPH # 1.2 10*3/uL (1.3-4.4); LYMPH % 14.5 % (27.0-41.0); MEAN CELL VOLUME 87.3 fl (81.0-99.0); MEAN CORPUSCULAR HGB 28.6 pg (27.0-31.0); MEAN CORPUSCULAR HGB CONC 32.7 g/dl (33.0-37.0); MEAN PLATELET VOLUME 9.8 fl (9.6-12.3); MONO # 0.7 10*3/uL (0.1-1.0); NEUT # 5.9 10*3/uL (2.3-7.9); NEUT % 72.1 % (47.0-73.0); PLATELET COUNT AUTOMATED 242 10*3/uL (130-400); RED BLOOD COUNT 3.15 10*6/uL (4.10-5.10); RED CELL DISTRI WIDTH 15.9 % (0-14.5); WHITE BLOOD COUNT 8.2 10*3/uL (4.8-10.8)
--- NOTE | 2019-03-22 07:45 | NUR ---
Pt taken off 6L oxymixer and placed on a regular 6L NC. SpO2 97%
[2019-03-22 08:00] VITALS: BP 122/48
[2019-03-22 08:55] VITALS: BP 125/48
[2019-03-22 12:00] VITALS: BP 134/44
--- NOTE | 2019-03-22 14:42 | NUR ---
24 HR chart check completed.
[2019-03-22 16:00] VITALS: BP 124/44
--- NOTE | 2019-03-22 17:05 | NUR ---
PATIENT COMPLAINED OF FEELNIG NAUSEOUS. ZOFRAN GIVEN PER PATIENT REQUEST. WILL ASSESS FOR EFFECTIVENESS.
--- NOTE | 2019-03-22 18:00 | NUR ---
PATIENT STATED ZOFRAN WAS EFFECTIVE. RESTING IN THE CHAIR WATCHING TV. CALL LIGHT WITHIN REACH.
[2019-03-22 20:00] VITALS: BP 137/41
--- NOTE | 2019-03-22 20:00 | NUR ---
IN TO ASSESS PATIENT, PATIENT SLEEPING UP IN CHAIR. AROUSES EASILY. BREATHING IS EASY AND RGULAR ON 6L NC. PATIENT C/O CONTINUED DYSPNEA ON MINIMAL EXERTION. LUNGS DIMINISHED WITH CRACKLES NOTED. NORMOACTIVE BOWELS X4 QUADS. STATED SHE FINALLY MOVED HER BOWELS TODAY. TRACE EDEMA NOTED. CALL LIGHT WITHIN REACH, WILL KRISTIEIOR
--- NOTE | 2019-03-22 23:30 | NUR ---
PATIENT SLEEPING, NO DISTTRESS NOTED. 6L NC INTACT. CALL LIGHT WITHIN REACH, WILL JOY
[2019-03-23] VITALS: BP 122/93; BP 130/56
--- NOTE | 2019-03-23 01:30 | NUR ---
24 HR chart check completed.
--- NOTE | 2019-03-23 06:15 | NUR ---
PATIENT STATED THAT SHE FELT HER BLOOD SUGAR WAS GOING LOW. BLOOD SUGAR CHECKED EARLIER AND WAS 67. PROVIDED ORANGE JUICE AND CRACKERS, WILL REASSESS
[2019-03-23 06:26] LABS: BASO % 0.3 % (0.0-1.0); EOS # 0.3 10*3/uL (0.0-0.4); EOS % 3.4 % (1.0-4.0); HEMATOCRIT 28.6 % (37.0-47.0); LYMPH # 1.1 10*3/uL (1.3-4.4); MEAN CELL VOLUME 89.7 fl (81.0-99.0); MEAN CORPUSCULAR HGB 28.2 pg (27.0-31.0); MEAN CORPUSCULAR HGB CONC 31.5 g/dl (33.0-37.0); MEAN PLATELET VOLUME 9.9 fl (9.6-12.3); MONO # 0.6 10*3/uL (0.1-1.0); MONO % 8.2 % (3.0-9.0); NEUT # 5.7 10*3/uL (2.3-7.9); NEUT % 73.7 % (47.0-73.0); PLATELET COUNT AUTOMATED 247 10*3/uL (130-400); RED BLOOD COUNT 3.19 10*6/uL (4.10-5.10); RED CELL DISTRI WIDTH 15.7 % (0-14.5); WHITE BLOOD COUNT 7.7 10*3/uL (4.8-10.8)
[2019-03-23 06:35] LABS: CREATININE 1.86 mg/dL (0.55-1.02); POTASSIUM 4.1 mmol/L (3.5-5.1)
--- NOTE | 2019-03-23 06:50 | NUR ---
BLOOD SUGAR RECHECKED AND IS 103
[2019-03-23 08:00] VITALS: BP 124/61
--- NOTE | 2019-03-23 09:35 | NUR ---
BOOM TENDER spoke with the patient. Patient is now agreeable to SNF. Patient wants a referral sent to [facility]. BOOM TENDER faxed new referral to [facility]. BOOM TENDER attempted to contact patient nephew (Sin Pickard- [phone]) as requested. Left voicemail for a return call. -LUCILA Aguilar
--- NOTE | 2019-03-23 10:07 | NUR ---
PHYSICAL THERAPY Patient seen this am 1;1 for therapy visit and was just awakening supine in bed upon therapist arrival. Patient identified by name / and presents with continuos O2-6L via NC. Patient was very pleasand, but DEERING, transfering supine to sit EOB with SBA. Patient completed several sit to stand transfers, CGA and ambulates 30'x 1, wh walker, CGA, demonstrating very slow, cautious gait pattern. Patient returned to bedside chair and completed seated B LE therex, all planes, x 10 reps each without c/o. Patient remained in bedside chair with call light, tray table and telephone. Will continue per POC as tolerated, total treatment time 15 minutes. Deven Taylor, SCHOOL TRANSPORTATION SUPERVISOR
--- NOTE | 2019-03-23 10:25 | NUR ---
OT NOTE Pt was seen this A.M. 1:1 for 25 minute OT session. Upon arrival pt was sitting upright in the recliner. Pt identified by name and and had no complaints at this time. Pt presented to therapy with continuous 6L-O2 via NC which she remained on throughout entire session. Requested for pt to doff and patricia B socks, pt was able to complete with SBA however initally was completing task while forward flexed at the waist increasing her complaints of SOB. Educated pt on energy conservation technique for LB dressing and pt had good carry over throughout. Sit to stand completed from chair level with CGA for safety due to being impulsive. Pt then completed functional mobility into the bathroom with CGA while therapist managed O2 tank. Throughout pt had poor O2 management safety increasing risk of falls. Pt was educated on O2 management and safety and she then presented with good carry over throughout entire session. Pt then transferred on/off standard commode with SBA and use of grab bar for UE support. Clothing management completed with SBA for safety and toilet hygiene completed with supervision while seated. Pt then stood sink side while washing her hands with CGA. Pt had reports of feeling SOB. Educated pt on breathing techniques which pt presented with fair carry over requiring constant verbal prompts to complete. Challenged pt's static standing tolerance needed for increased I, enhanced safety, and improved endurance. Pt was able to tolerate aprox 2 minutes at a time before sitting due to fatigue. Pt was left sitting reclined in the recliner with call light and phone in reach and tray table in place. Continue with rec D/C plan to home with home health. REJI Daley/Melissa
--- NOTE | 2019-03-23 11:41 | NUR ---
WELFARE ANALYST returned call from the patients nephew Sin Lyle. He stated he is concerned with the patient returning home due to her living by herself with her medical issues going on. WELFARE ANALYST informed him the patient is agreeable to SNF. WELFARE ANALYST also informed him the WELFARE ANALYST is having [facility] take another look at her due to the changes over the weekend. He was agreeable. The nephew requested resources for when the patient would return home. WELFARE ANALYST emailed him resources on Waiver programs and [facility]. The nephew would like notified when the discharge plans are completed. LUCILA will continue to follow. -LUCILA Aguilar
[2019-03-23 12:00] VITALS: BP 116/54
--- NOTE | 2019-03-23 12:35 | NUR ---
PT HAS AGREED TO GO TO [facility] NOW AND REFERRAL HAS BEEN MADE. WILL CONTINUE TO FOLLOW.
--- NOTE | 2019-03-23 15:29 | NUR ---
Patient has been approved for [facility]. BEACH PATROL LIEUTENANT notified Clamp Jig Assembler Ngoc and Hospitalist RN Coordinator Leia. Patient is scheduled for a Chest Xray in the morning. Will continue to monitor. -LUCILA Aguilar
[2019-03-23 16:00] VITALS: BP 128/55
[2019-03-23 20:00] VITALS: BP 135/41
--- NOTE | 2019-03-23 21:14 | NUR ---
REFUSED MIRALAX STATED "I'VE HAD TWO BOWEL MOVEMENTS TODAY. I DON'T NEED ANYMORE".
--- NOTE | 2019-03-23 22:59 | NUR ---
24 HR chart check completed.
[2019-03-24] VITALS: BP 153/66
--- NOTE | 2019-03-24 04:05 | NUR ---
SLEEPING NOT ACUTE DISTRESS NOTED. RESP. REG AND EASY. O2 STILL IN USE.
[2019-03-24 07:33] LABS: CREATININE 1.84 mg/dL (0.55-1.02)
[2019-03-24 07:35] LABS: POTASSIUM 5.1 mmol/L (3.5-5.1)
[2019-03-24 08:00] VITALS: BP 137/41
--- NOTE | 2019-03-24 10:00 | NUR ---
PHYSICAL THERAPY Patient seen this am 1;1 for therapy visit and was sitting up in bedside recliner chair upon therapist arrival. Patient identified by name / and voices no new c/o's at this time. Patient performed seated B LE therex, all planes, x 20 reps each to increase LE strength, followed by several sit to stand transfers SUPERVISOR PHOSPHORUS PROCESSING/MIN from low chair surface. Patient presents with continuous O2-4L via NC and tolerated < 1 minute static stand each trial secondary to increased fatigue. Patient remained in bedside chair with call light, tray table and telephone. Will continue per POC as tolerated, total treatment time 17 minutes. Deven Taylor, ANALYTICS SENIOR MANAGER
[2019-03-24] MEDS ORDERED: BUMEX2.5 MG/10 IV (10:03)
[2019-03-24] MEDS ORDERED: VITAMIN D33000 UNIT PO (10:03)
--- NOTE | 2019-03-24 11:09 | NUR ---
SECURITY DEVELOPER notified of patients discharge. SECURITY DEVELOPER spoke with Liz. SECURITY DEVELOPER contacted [facility] to schedule transport for 2pm. After everyone was notified SECURITY DEVELOPER received call back from [facility] stating they needed to move up the patients pickup time. SECURITY DEVELOPER notified Liz she stated that was okay. SECURITY DEVELOPER notified Er[facility], SECURITY DEVELOPER contacted Patients Leonard Vogt, SECURITY DEVELOPER also explained the situation to the patient and family friends who were at bedside and agreeable. SECURITY DEVELOPER faxed over Demographics to [facility]. -LUCILA Aguilar
--- NOTE | 2019-03-24 12:05 | NUR ---
PT HAS BEEN ACCEPTED TO [facility] AND WILL BE DISCHARAGED TODAY. PT AND FAMILY AWARE PER SOLAR PANEL TECHNICIAN. WILL CONTINUE TO FOLLOW.
--- NOTE | 2019-03-24 12:47 | NUR ---
Discharge instructions reviewed with patient/family. Patient receptive and verbalizes understanding. Follow-up care arranged. Written instructions given to patient/family. STAN REVELES
--- NOTE | 2019-03-24 12:47 | NUR ---
REPORT CALLED TO DONIS
--- NOTE | 2019-03-25 07:52 | NUR ---
OT ANITHA I APPROVE OF THE NOTES WRITTEN ABOVE. THANK YOU. SHARRI EDEN, OTR/L
--- NOTE | 2019-03-25 07:55 | NUR ---
PHYSICAL THERAPY CO-SIGN I approve of the Physical Therapy notes written above. JAQUAN BOWMAN PT,DPT
== END 2019-03-24 12:47 | DRG 291 ==
LOC: ED 20:50 → EDHOLD 22:44 → 5E 22:44
PROVIDERS: Emergency Medicine Emergency Medical Services; Family Medicine; Internal Medicine; Student in an Organized Health Care Education/Training Program; ADMIT Emergency Medicine
DX: I13.0 Hypertensive heart and chronic kidney disease with heart failure and stage 1 through stage 4 chronic kidney disease, or unspecified chronic kidney disease (principal); N17.0 Acute kidney failure with tubular necrosis; J96.01 Acute respiratory failure with hypoxia; E43 Unspecified severe protein-calorie malnutrition; R65.11 Systemic inflammatory response syndrome (SIRS) of non-infectious origin with acute organ dysfunction; I50.33 Acute on chronic diastolic (congestive) heart failure; E87.1 Hypo-osmolality and hyponatremia; N18.4 Chronic kidney disease, stage 4 (severe); E11.22 Type 2 diabetes mellitus with diabetic chronic kidney disease; E66.8 Other obesity; E11.65 Type 2 diabetes mellitus with hyperglycemia; H91.11 Presbycusis, right ear; R59.0 Localized enlarged lymph nodes; I27.20 Pulmonary hypertension, unspecified; I25.10 Atherosclerotic heart disease of native coronary artery without angina pectoris; I07.1 Rheumatic tricuspid insufficiency; D64.9 Anemia, unspecified; R74.8 Abnormal levels of other serum enzymes; E78.5 Hyperlipidemia, unspecified; M10.9 Gout, unspecified; F32.9 Major depressive disorder, single episode, unspecified; E03.9 Hypothyroidism, unspecified; Z79.4 Long term (current) use of insulin; Z88.2 Allergy status to sulfonamides; Z95.1 Presence of aortocoronary bypass graft; Z98.42 Cataract extraction status, left eye; Z98.41 Cataract extraction status, right eye; Z95.5 Presence of coronary angioplasty implant and graft; Z83.3 Family history of diabetes mellitus; Z82.49 Family history of ischemic heart disease and other diseases of the circulatory system; Z90.49 Acquired absence of other specified parts of digestive tract; Z90.711 Acquired absence of uterus with remaining cervical stump; Z79.82 Long term (current) use of aspirin; Z79.899 Other long term (current) drug therapy; Z79.890 Hormone replacement therapy; Z68.32 Body mass index [BMI] 32.0-32.9, adult

== ENCOUNTER 2020-10-13 22:14 | Inpatient (IN) | payer MEDICARE ==
[~2020-10-13] VITALS: Ht 157.5 cm; Wt 98.7 kg
[~2020-10-13 22:14] MED LIST changes: +AMLODIPINE BESY10 MG PO; -ANTIVERT25 MG; +BUMETANIDE2 MG PO; +BUMEX2.5 MG/10 IV; +CITALOPRAM20 MG PO; +FAMOTIDINE20 M1 PO; -KLOR-CON 1010 ME1 PO; +KLOR-CON M2020 ME1 PO; +LANTUS SOL100 UNIT/1 SC; -LANTUS100 U/ML SC; +LOPRESSOR50 M1 PO; -Lopressor25 MG PO; +Meclizine25 MG PO; +SYNTHROID,LEVO75 MCG PO; -SYNTHROID25 MCG PO; +TRAZODONE100 MG PO; -TRAZODONE50 MG PO; +VITAMIN D33000 UNIT PO
[2020-10-13 22:24] VITALS: BP 149/57
[2020-10-13 23:14] LABS: BASO % 0.2 % (0.0-1.0); EOS # 0.2 10*3/uL (0.0-0.4); EOS % 1.9 % (1.0-4.0); HEMATOCRIT 32.9 % (37.0-47.0); LYMPH % 9.8 % (27.0-41.0); MEAN CELL VOLUME 92.4 fl (81.0-99.0); MEAN CORPUSCULAR HGB 30.1 pg (27.0-31.0); MEAN CORPUSCULAR HGB CONC 32.5 g/dl (33.0-37.0); MONO # 0.9 10*3/uL (0.1-1.0); MONO % 8.9 % (3.0-9.0); NEUT # 7.7 10*3/uL (2.3-7.9); NEUT % 78.9 % (47.0-73.0); PLATELET COUNT AUTOMATED 249 10*3/uL (130-400); RED BLOOD COUNT 3.56 10*6/uL (4.10-5.10); RED CELL DISTRI WIDTH 15.8 % (0-14.5); WHITE BLOOD COUNT 9.7 10*3/uL (4.8-10.8)
[2020-10-13 23:30] LABS: ACT PARTIAL THROMBO TIME 30.4 SECONDS (20.0-32.1); INTERNATIONAL NORM RATIO 1.3 (2.0-3.5)
[2020-10-13 23:31] LABS: ALBUMIN 3.2 gm/dl (3.1-4.5); ALKALINE PHOSPHATASE 279 U/L (45-117); BUN 91 mg/dl (7-24); CHLORIDE 105 mmol/L (98-107); CREATININE 2.68 mg/dL (0.55-1.02); POTASSIUM 4.4 mmol/L (3.5-5.1); SGOT/AST 17 IU/L (3-35); SGPT/ALT 28 U/L (12-78); SODIUM 135 mmol/L (136-145); TOTAL PROTEIN 7.9 gm/dL (6.4-8.2)
[2020-10-13 23:33] LABS: TROPONIN I < 0.015 ng/ml (<0.045)
[2020-10-14 00:20] VITALS: BP 128/56
[2020-10-14 01:35] VITALS: BP 150/59
[2020-10-14] MEDS ORDERED: BUMETANIDE2 MG PO (02:16)
[2020-10-14] MEDS ORDERED: VITAMIN D350 MCG PO (02:18)
[2020-10-14] MEDS ORDERED: LANTUS SOL100 UNIT/1 SC (02:23)
[2020-10-14] MEDS ORDERED: NOVOLOG10 ML SC (02:24)
[2020-10-14] MEDS ORDERED: ELIQUIS2.5 M1 PO (02:27)
[2020-10-14] MEDS ORDERED: CARDIZEM CD240 M1 PO (02:28)
[2020-10-14] MEDS ORDERED: PROAIR HFA8.5 GM INH (02:28)
[2020-10-14 02:37] LABS: BILIRUBIN Negative (Negative); BLOOD Negative (Negative); CLARITY Clear (Clear); COLOR Yellow (Yellow); GLUCOSE Negative (Negative); KETONE Negative (Negative); LEUKO ESTERASE 1+ (Negative); NITRITE Negative (Negative); UROBILINOGEN 0.2 E.U./dl (0.0-1.0)
[2020-10-14 03:09] LABS: WBC 16-20 wbc/hpf (0-5)
[2020-10-14 03:10] LABS: BACTERIA 1+
[2020-10-14 06:45] LABS: BASO % 0.3 % (0.0-1.0); EOS # 0.2 10*3/uL (0.0-0.4); EOS % 1.9 % (1.0-4.0); HEMATOCRIT 34.8 % (37.0-47.0); LYMPH % 10.5 % (27.0-41.0); MEAN CELL VOLUME 93.3 fl (81.0-99.0); MEAN CORPUSCULAR HGB 29.2 pg (27.0-31.0); MEAN CORPUSCULAR HGB CONC 31.3 g/dl (33.0-37.0); MEAN PLATELET VOLUME 10.4 fl (9.6-12.3); MONO # 0.8 10*3/uL (0.1-1.0); MONO % 8.4 % (3.0-9.0); NEUT # 7.7 10*3/uL (2.3-7.9); NEUT % 78.6 % (47.0-73.0); PLATELET COUNT AUTOMATED 256 10*3/uL (130-400); RED BLOOD COUNT 3.73 10*6/uL (4.10-5.10); RED CELL DISTRI WIDTH 15.7 % (0-14.5); WHITE BLOOD COUNT 9.8 10*3/uL (4.8-10.8)
[2020-10-14 06:54] LABS: ACT PARTIAL THROMBO TIME 30.6 SECONDS (20.0-32.1); INTERNATIONAL NORM RATIO 1.3 (2.0-3.5)
[2020-10-14 06:59] LABS: POTASSIUM 3.7 mmol/L (3.5-5.1)
[2020-10-14 07:07] LABS: CREATININE 2.38 mg/dL (0.55-1.02); FREE T4 1.2 ng/dl (0.76-1.46); THYROID STIM HORMONE (HS) 4.22 uIU/ml (0.358-4.75); TOTAL PROTEIN 7.9 gm/dL (6.4-8.2)
[2020-10-14 08:00] VITALS: BP 149/55
[2020-10-14 12:00] VITALS: BP 140/69
[2020-10-14 16:00] VITALS: BP 137/63
[2020-10-14 20:00] VITALS: BP 134/46
[2020-10-15] VITALS: BP 118/37
[2020-10-15 06:39] LABS: CREATININE 2.87 mg/dL (0.55-1.02); POTASSIUM 4.4 mmol/L (3.5-5.1)
[2020-10-15 08:00] VITALS: BP 113/62
[2020-10-15 12:00] VITALS: BP 121/67
[2020-10-15 16:00] VITALS: BP 121/42
[2020-10-15 20:00] VITALS: BP 120/52
[2020-10-16] VITALS: BP 135/52
[2020-10-16 05:42] LABS: CREATININE 3.71 mg/dL (0.55-1.02); POTASSIUM 4.8 mmol/L (3.5-5.1)
[2020-10-16 08:00] VITALS: BP 121/62
[2020-10-16 12:00] VITALS: BP 129/67
[2020-10-16 16:00] VITALS: BP 134/50
[2020-10-16 20:00] VITALS: BP 131/56
[2020-10-17 00:41] VITALS: BP 150/67
[2020-10-17 06:41] LABS: CREATININE 3.83 mg/dL (0.55-1.02); POTASSIUM 4.8 mmol/L (3.5-5.1)
[2020-10-17 07:57] VITALS: BP 150/58
[2020-10-17 12:12] VITALS: BP 132/44
[2020-10-17 16:00] VITALS: BP 125/42
[2020-10-17 20:00] VITALS: BP 113/50
[2020-10-18] VITALS: BP 123/51
[2020-10-18 06:26] LABS: CREATININE 3.81 mg/dL (0.55-1.02); POTASSIUM 4.6 mmol/L (3.5-5.1)
[2020-10-18 08:00] VITALS: BP 113/84
[2020-10-18 12:00] VITALS: BP 117/69
[2020-10-18 16:00] VITALS: BP 138/53
[2020-10-18 20:15] VITALS: BP 110/37
[2020-10-19] VITALS: BP 114/37
[2020-10-19 06:47] LABS: BASO % 0.3 % (0.0-1.0); EOS # 0.2 10*3/uL (0.0-0.4); EOS % 2.5 % (1.0-4.0); HEMATOCRIT 34.1 % (37.0-47.0); LYMPH # 1.4 10*3/uL (1.3-4.4); LYMPH % 14.2 % (27.0-41.0); MEAN CELL VOLUME 91.4 fl (81.0-99.0); MEAN CORPUSCULAR HGB 29.8 pg (27.0-31.0); MEAN CORPUSCULAR HGB CONC 32.6 g/dl (33.0-37.0); MEAN PLATELET VOLUME 9.7 fl (9.6-12.3); MONO # 0.9 10*3/uL (0.1-1.0); MONO % 9.9 % (3.0-9.0); NEUT # 6.9 10*3/uL (2.3-7.9); NEUT % 72.5 % (47.0-73.0); PLATELET COUNT AUTOMATED 261 10*3/uL (130-400); RED BLOOD COUNT 3.73 10*6/uL (4.10-5.10); RED CELL DISTRI WIDTH 15.1 % (0-14.5); WHITE BLOOD COUNT 9.5 10*3/uL (4.8-10.8)
[2020-10-19 07:46] LABS: CREATININE 3.9 mg/dL (0.55-1.02)
[2020-10-19 08:00] VITALS: BP 136/50
[2020-10-19 12:00] VITALS: BP 100/56
[2020-10-19 16:00] VITALS: BP 127/41
[2020-10-19 20:00] VITALS: BP 119/45
[2020-10-19 21:43] LABS: BILIRUBIN Negative (Negative); BLOOD Negative (Negative); CLARITY Cloudy (Clear); COLOR Yellow (Yellow); GLUCOSE Trace (Negative); KETONE Trace (Negative); LEUKO ESTERASE 2+ (Negative); NITRITE Negative (Negative); UROBILINOGEN 0.2 E.U./dl (0.0-1.0)
[2020-10-19 21:54] LABS: BACTERIA 1+; RBC 0-2 rbc/hpf (0-2); WBC 51-100 wbc/hpf (0-5)
[2020-10-19 21:58] LABS: URINE CHLORIDE, RANDOM < 10 mmol/L
[2020-10-20] VITALS: BP 129/44
[2020-10-20 06:08] LABS: BASO % 0.2 % (0.0-1.0); EOS # 0.2 10*3/uL (0.0-0.4); EOS % 2.4 % (1.0-4.0); HEMATOCRIT 31.1 % (37.0-47.0); LYMPH % 11.9 % (27.0-41.0); MEAN CELL VOLUME 90.4 fl (81.0-99.0); MEAN CORPUSCULAR HGB 29.7 pg (27.0-31.0); MEAN CORPUSCULAR HGB CONC 32.8 g/dl (33.0-37.0); MEAN PLATELET VOLUME 10.4 fl (9.6-12.3); MONO # 0.8 10*3/uL (0.1-1.0); NEUT # 6.2 10*3/uL (2.3-7.9); NEUT % 75.1 % (47.0-73.0); PLATELET COUNT AUTOMATED 226 10*3/uL (130-400); RED BLOOD COUNT 3.44 10*6/uL (4.10-5.10); RED CELL DISTRI WIDTH 15.1 % (0-14.5); WHITE BLOOD COUNT 8.3 10*3/uL (4.8-10.8)
[2020-10-20 06:26] LABS: POTASSIUM 5.1 mmol/L (3.5-5.1)
[2020-10-20 06:33] LABS: CREATININE 3.92 mg/dL (0.55-1.02)
[2020-10-20 08:00] VITALS: BP 96/62
[2020-10-20 12:00] VITALS: BP 100/67
[2020-10-20 16:00] VITALS: BP 135/45
[2020-10-20 20:00] VITALS: BP 128/42; BP 132/38
[2020-10-21] VITALS: BP 120/48; BP 131/36
[2020-10-21 06:32] LABS: CREATININE 3.61 mg/dL (0.55-1.02); POTASSIUM 4.9 mmol/L (3.5-5.1)
[2020-10-21 08:00] VITALS: BP 132/54; BP 98/48
[2020-10-21 12:00] VITALS: BP 142/86
[2020-10-21 16:00] VITALS: BP 153/46
[2020-10-21 20:00] VITALS: BP 150/42
[2020-10-22] VITALS: BP 132/40
[2020-10-22 05:47] LABS: CREATININE 2.76 mg/dL (0.55-1.02); POTASSIUM 4.3 mmol/L (3.5-5.1)
[2020-10-22 08:00] VITALS: BP 139/41
[2020-10-22 12:00] VITALS: BP 128/48
[2020-10-22 16:00] VITALS: BP 116/52
[2020-10-22 20:00] VITALS: BP 144/44
[2020-10-23] VITALS: BP 142/43
[2020-10-23 05:31] LABS: CREATININE 2.28 mg/dL (0.55-1.02); POTASSIUM 4.3 mmol/L (3.5-5.1)
[2020-10-23 08:00] VITALS: BP 138/47
[2020-10-23 12:00] VITALS: BP 135/49
[2020-10-23 16:00] VITALS: BP 141/50
[2020-10-23 20:00] VITALS: BP 146/50
[2020-10-24] VITALS: BP 125/41
[2020-10-24 06:40] LABS: CREATININE 1.88 mg/dL (0.55-1.02); POTASSIUM 4.3 mmol/L (3.5-5.1)
[2020-10-24 07:44] VITALS: BP 110/60
[2020-10-24] MEDS ORDERED: BUMETANIDE1 MG PO (11:41)
[2020-10-24] MEDS ORDERED: LOPRESSOR25 MG PO (11:41)
[2020-10-24] MEDS ORDERED: ELIQUIS5 M1 PO (11:41)
[2020-10-24 12:00] VITALS: BP 112/64
== END 2020-10-24 14:00 | DRG 291 ==
LOC: ED 22:14 → EDHOLD 10-14 00:51 → 4E 10-14 00:51
PROVIDERS: Hospitalist; Internal Medicine; Internal Medicine Nephrology; Registered Nurse; Social Worker Clinical; Student in an Organized Health Care Education/Training Program; ADMIT Family Medicine; ATTEND Family Medicine
DX: I13.0 Hypertensive heart and chronic kidney disease with heart failure and stage 1 through stage 4 chronic kidney disease, or unspecified chronic kidney disease (principal); I50.33 Acute on chronic diastolic (congestive) heart failure; J96.21 Acute and chronic respiratory failure with hypoxia; N17.0 Acute kidney failure with tubular necrosis; E87.1 Hypo-osmolality and hyponatremia; E44.0 Moderate protein-calorie malnutrition; N18.4 Chronic kidney disease, stage 4 (severe); N30.00 Acute cystitis without hematuria; D68.9 Coagulation defect, unspecified; K21.9 Gastro-esophageal reflux disease without esophagitis; E78.5 Hyperlipidemia, unspecified; E83.41 Hypermagnesemia; F32.9 Major depressive disorder, single episode, unspecified; E11.22 Type 2 diabetes mellitus with diabetic chronic kidney disease; D64.9 Anemia, unspecified; E11.65 Type 2 diabetes mellitus with hyperglycemia; I48.91 Unspecified atrial fibrillation; I27.20 Pulmonary hypertension, unspecified; I07.1 Rheumatic tricuspid insufficiency; Z20.822 Contact with and (suspected) exposure to COVID-19; I95.9 Hypotension, unspecified; E03.9 Hypothyroidism, unspecified; M10.9 Gout, unspecified; Z95.1 Presence of aortocoronary bypass graft; Z90.49 Acquired absence of other specified parts of digestive tract; Z95.5 Presence of coronary angioplasty implant and graft; Z79.4 Long term (current) use of insulin; Z99.81 Dependence on supplemental oxygen; Z90.710 Acquired absence of both cervix and uterus; Z88.2 Allergy status to sulfonamides; Z79.899 Other long term (current) drug therapy; Z82.49 Family history of ischemic heart disease and other diseases of the circulatory system; Z83.3 Family history of diabetes mellitus; Z79.51 Long term (current) use of inhaled steroids; Z68.37 Body mass index [BMI] 37.0-37.9, adult

== ENCOUNTER 2021-01-02 10:03 | Inpatient (IN) | payer MEDICARE ==
[~2021-01-02] VITALS: Ht 162.6 cm; Wt 96.6 kg
[~2021-01-02 10:03] MED LIST changes: +BUMETANIDE1 MG PO; +CARDIZEM CD240 M1 PO; +ELIQUIS2.5 M1 PO; +ELIQUIS5 M1 PO; +LOPRESSOR25 MG PO; +NOVOLOG10 ML SC; +PROAIR HFA8.5 GM INH; +VITAMIN D350 MCG PO
[2021-01-02 10:17] VITALS: BP 139/56
[2021-01-02 10:38] LABS: BASO % 0.1 % (0.0-1.0); EOS # 0.1 10*3/uL (0.0-0.4); EOS % 1.3 % (1.0-4.0); HEMATOCRIT 29.5 % (37.0-47.0); LYMPH # 0.6 10*3/uL (1.3-4.4); LYMPH % 8.1 % (27.0-41.0); MEAN CELL VOLUME 90.5 fl (81.0-99.0); MEAN CORPUSCULAR HGB 28.5 pg (27.0-31.0); MEAN CORPUSCULAR HGB CONC 31.5 g/dl (33.0-37.0); MEAN PLATELET VOLUME 9.1 fl (9.6-12.3); MONO # 0.6 10*3/uL (0.1-1.0); MONO % 7.1 % (3.0-9.0); NEUT # 6.5 10*3/uL (2.3-7.9); NEUT % 83.1 % (47.0-73.0); PLATELET COUNT AUTOMATED 168 10*3/uL (130-400); RED BLOOD COUNT 3.26 10*6/uL (4.10-5.10); RED CELL DISTRI WIDTH 18.6 % (0-14.5); WHITE BLOOD COUNT 7.8 10*3/uL (4.8-10.8)
[2021-01-02 10:56] LABS: CREATININE 2.08 mg/dL (0.55-1.02); POTASSIUM 3.3 mmol/L (3.5-5.1); TOTAL PROTEIN 7.5 gm/dL (6.4-8.2); TROPONIN I 0.019 ng/ml (<0.045)
[2021-01-02 14:00] VITALS: BP 141/56
[2021-01-02] MEDS ORDERED: BUMETANIDE1 MG PO (14:56)
[2021-01-02 16:00] VITALS: BP 133/53
[2021-01-02 20:00] VITALS: BP 124/45
[2021-01-03] VITALS: BP 103/50
[2021-01-03 06:24] LABS: BASO % 0.1 % (0.0-1.0); EOS # 0.2 10*3/uL (0.0-0.4); EOS % 2.8 % (1.0-4.0); HEMATOCRIT 29.7 % (37.0-47.0); LYMPH # 0.7 10*3/uL (1.3-4.4); MEAN CELL VOLUME 92.5 fl (81.0-99.0); MEAN CORPUSCULAR HGB 28.7 pg (27.0-31.0); MEAN PLATELET VOLUME 10.3 fl (9.6-12.3); MONO # 0.7 10*3/uL (0.1-1.0); MONO % 8.7 % (3.0-9.0); NEUT # 6.6 10*3/uL (2.3-7.9); NEUT % 80.2 % (47.0-73.0); PLATELET COUNT AUTOMATED 180 10*3/uL (130-400); RED BLOOD COUNT 3.21 10*6/uL (4.10-5.10); RED CELL DISTRI WIDTH 18.6 % (0-14.5); WHITE BLOOD COUNT 8.3 10*3/uL (4.8-10.8)
[2021-01-03 06:53] LABS: ALBUMIN 2.8 gm/dl (3.1-4.5); CREATININE 2.1 mg/dL (0.55-1.02); POTASSIUM 3.4 mmol/L (3.5-5.1); TOTAL PROTEIN 7.1 gm/dL (6.4-8.2)
[2021-01-03 08:00] VITALS: BP 124/58
[2021-01-03 12:00] VITALS: BP 114/51
[2021-01-03 16:00] VITALS: BP 120/41
[2021-01-03 20:00] VITALS: BP 116/52
[2021-01-04] VITALS: BP 124/47
[2021-01-04 06:57] LABS: CREATININE 2.74 mg/dL (0.55-1.02)
[2021-01-04 06:58] LABS: POTASSIUM 4.7 mmol/L (3.5-5.1)
[2021-01-04 08:00] VITALS: BP 106/46
[2021-01-04 12:00] VITALS: BP 114/46
[2021-01-04 16:00] VITALS: BP 124/46
[2021-01-04 20:00] VITALS: BP 110/36
[2021-01-05] VITALS: BP 104/44
[2021-01-05 05:48] LABS: CREATININE 3.31 mg/dL (0.55-1.02); POTASSIUM 5.3 mmol/L (3.5-5.1)
[2021-01-05 06:29] LABS: BASO % 0.1 % (0.0-1.0); EOS # 0.2 10*3/uL (0.0-0.4); EOS % 2.1 % (1.0-4.0); HEMATOCRIT 29.6 % (37.0-47.0); LYMPH # 0.8 10*3/uL (1.3-4.4); LYMPH % 10.6 % (27.0-41.0); MEAN CELL VOLUME 92.8 fl (81.0-99.0); MEAN CORPUSCULAR HGB 28.2 pg (27.0-31.0); MEAN CORPUSCULAR HGB CONC 30.4 g/dl (33.0-37.0); MEAN PLATELET VOLUME 10.2 fl (9.6-12.3); MONO # 0.9 10*3/uL (0.1-1.0); MONO % 11.1 % (3.0-9.0); NEUT # 5.8 10*3/uL (2.3-7.9); NEUT % 75.8 % (47.0-73.0); PLATELET COUNT AUTOMATED 168 10*3/uL (130-400); RED BLOOD COUNT 3.19 10*6/uL (4.10-5.10); RED CELL DISTRI WIDTH 19.2 % (0-14.5); WHITE BLOOD COUNT 7.7 10*3/uL (4.8-10.8)
[2021-01-05 08:00] VITALS: BP 114/51
[2021-01-05 12:00] VITALS: BP 114/51; BP 121/73
[2021-01-05 16:00] VITALS: BP 116/59
[2021-01-05 20:00] VITALS: BP 115/53
[2021-01-06] VITALS: BP 119/40
[2021-01-06 08:00] VITALS: BP 122/51
[2021-01-06 10:05] LABS: CREATININE 3.34 mg/dL (0.55-1.02); POTASSIUM 4.7 mmol/L (3.5-5.1)
[2021-01-06 12:00] VITALS: BP 110/50
[2021-01-06 16:00] VITALS: BP 108/52
[2021-01-06 20:00] VITALS: BP 98/85
[2021-01-07] VITALS: BP 119/96
[2021-01-07 06:23] LABS: ALBUMIN 3.2 gm/dl (3.1-4.5); CREATININE 3.1 mg/dL (0.55-1.02); POTASSIUM 4.2 mmol/L (3.5-5.1)
[2021-01-07 06:26] LABS: BASO % 0.1 % (0.0-1.0); EOS % 0.4 % (1.0-4.0); HEMATOCRIT 28.2 % (37.0-47.0); LYMPH # 0.3 10*3/uL (1.3-4.4); LYMPH % 2.8 % (27.0-41.0); MEAN CELL VOLUME 92.8 fl (81.0-99.0); MEAN CORPUSCULAR HGB 28.6 pg (27.0-31.0); MEAN CORPUSCULAR HGB CONC 30.9 g/dl (33.0-37.0); MEAN PLATELET VOLUME 10.5 fl (9.6-12.3); MONO # 0.8 10*3/uL (0.1-1.0); MONO % 8.2 % (3.0-9.0); NEUT % 88.2 % (47.0-73.0); PLATELET COUNT AUTOMATED 193 10*3/uL (130-400); RED BLOOD COUNT 3.04 10*6/uL (4.10-5.10); WHITE BLOOD COUNT 10.2 10*3/uL (4.8-10.8)
[2021-01-07 08:00] VITALS: BP 130/44
[2021-01-07 12:00] VITALS: BP 124/50
[2021-01-07 16:00] VITALS: BP 129/44
[2021-01-07 20:00] VITALS: BP 138/48
[2021-01-08 06:21] LABS: HEMATOCRIT 30.2 % (37.0-47.0); MEAN CELL VOLUME 93.2 fl (81.0-99.0); MEAN CORPUSCULAR HGB 28.7 pg (27.0-31.0); MEAN CORPUSCULAR HGB CONC 30.8 g/dl (33.0-37.0); MEAN PLATELET VOLUME 10.4 fl (9.6-12.3); PLATELET COUNT AUTOMATED 170 10*3/uL (130-400); RED BLOOD COUNT 3.24 10*6/uL (4.10-5.10); RED CELL DISTRI WIDTH 19.2 % (0-14.5)
[2021-01-08 06:57] LABS: POTASSIUM 3.9 mmol/L (3.5-5.1)
[2021-01-08 07:15] LABS: ALBUMIN 3.5 gm/dl (3.1-4.5); CREATININE 3.05 mg/dL (0.55-1.02)
[2021-01-08 07:25] LABS: OVALOCYTES FEW; PLATELET SUFFICIENCY NORMAL (NORMAL); POLYCHROMASIA SLIGHT; TARGET CELLS FEW; TOTAL CELLS COUNTED 100 #CELLS
[2021-01-08 08:00] VITALS: BP 147/50
[2021-01-08 12:00] VITALS: BP 141/72
[2021-01-08 16:00] VITALS: BP 124/48
[2021-01-08 20:00] VITALS: BP 126/45
[2021-01-09] VITALS: BP 146/53
[2021-01-09 06:05] LABS: ALBUMIN 3.6 gm/dl (3.1-4.5); CREATININE 3.63 mg/dL (0.55-1.02)
[2021-01-09 06:15] LABS: BASO % 0.1 % (0.0-1.0); EOS % 0.1 % (1.0-4.0); HEMATOCRIT 27.8 % (37.0-47.0); LYMPH # 0.6 10*3/uL (1.3-4.4); LYMPH % 5.3 % (27.0-41.0); MEAN CELL VOLUME 93.3 fl (81.0-99.0); MEAN CORPUSCULAR HGB 28.5 pg (27.0-31.0); MEAN CORPUSCULAR HGB CONC 30.6 g/dl (33.0-37.0); MEAN PLATELET VOLUME 10.9 fl (9.6-12.3); MONO % 8.6 % (3.0-9.0); NEUT # 9.5 10*3/uL (2.3-7.9); NEUT % 85.5 % (47.0-73.0); PLATELET COUNT AUTOMATED 151 10*3/uL (130-400); RED BLOOD COUNT 2.98 10*6/uL (4.10-5.10); RED CELL DISTRI WIDTH 19.5 % (0-14.5); WHITE BLOOD COUNT 11.1 10*3/uL (4.8-10.8)
[2021-01-09 08:00] VITALS: BP 141/52
[2021-01-09 12:00] VITALS: BP 130/45
[2021-01-09 16:00] VITALS: BP 115/45; BP 121/74
[2021-01-09 20:00] VITALS: BP 119/54
[2021-01-10] VITALS (9 sets, daily range): BP systolic 109–148; BP diastolic 40–68
[2021-01-10 06:16] LABS: BASO % 0.1 % (0.0-1.0); CREATININE 4.36 mg/dL (0.55-1.02); EOS # 0.1 10*3/uL (0.0-0.4); EOS % 0.8 % (1.0-4.0); HEMATOCRIT 27.3 % (37.0-47.0); LYMPH # 0.4 10*3/uL (1.3-4.4); MEAN CELL VOLUME 92.5 fl (81.0-99.0); MEAN CORPUSCULAR HGB 28.8 pg (27.0-31.0); MEAN CORPUSCULAR HGB CONC 31.1 g/dl (33.0-37.0); MEAN PLATELET VOLUME 10.9 fl (9.6-12.3); MONO # 1.2 10*3/uL (0.1-1.0); MONO % 11.5 % (3.0-9.0); NEUT # 8.8 10*3/uL (2.3-7.9); NEUT % 82.9 % (47.0-73.0); PLATELET COUNT AUTOMATED 148 10*3/uL (130-400); POTASSIUM 3.7 mmol/L (3.5-5.1); RED BLOOD COUNT 2.95 10*6/uL (4.10-5.10); RED CELL DISTRI WIDTH 19.3 % (0-14.5); TOTAL PROTEIN 7.3 gm/dL (6.4-8.2); WHITE BLOOD COUNT 10.6 10*3/uL (4.8-10.8)
[2021-01-10 09:22] LABS: ACT PARTIAL THROMBO TIME 34.7 SECONDS (20.0-32.1); INTERNATIONAL NORM RATIO 1.3 (2.0-3.5)
[2021-01-10 10:47] LABS: BILIRUBIN 1+ (Negative); BLOOD 3+ (Negative); CLARITY Turbid (Clear); COLOR Dark Yellow (Yellow); GLUCOSE Negative (Negative); KETONE Trace (Negative); LEUKO ESTERASE 3+ (Negative); NITRITE Negative (Negative)
[2021-01-10 11:36] LABS: BACTERIA 3+; EPITHELIAL CELLS TNTC; RBC TNTC rbc/hpf (0-2); WBC TNTC wbc/hpf (0-5)
[2021-01-10 11:37] LABS: YEAST 4+
[2021-01-11] VITALS: BP 123/51
[2021-01-11 06:42] LABS: BASO % 0.1 % (0.0-1.0); EOS # 0.1 10*3/uL (0.0-0.4); EOS % 0.6 % (1.0-4.0); HEMATOCRIT 29.2 % (37.0-47.0); LYMPH # 0.6 10*3/uL (1.3-4.4); LYMPH % 4.5 % (27.0-41.0); MEAN CELL VOLUME 90.1 fl (81.0-99.0); MEAN CORPUSCULAR HGB 28.4 pg (27.0-31.0); MEAN CORPUSCULAR HGB CONC 31.5 g/dl (33.0-37.0); MONO # 1.3 10*3/uL (0.1-1.0); MONO % 9.6 % (3.0-9.0); NEUT # 11.8 10*3/uL (2.3-7.9); NEUT % 84.6 % (47.0-73.0); PLATELET COUNT AUTOMATED 169 10*3/uL (130-400); RED BLOOD COUNT 3.24 10*6/uL (4.10-5.10); RED CELL DISTRI WIDTH 18.9 % (0-14.5)
[2021-01-11 06:57] LABS: ALBUMIN 3.6 gm/dl (3.1-4.5); CREATININE 4.96 mg/dL (0.55-1.02); POTASSIUM 3.9 mmol/L (3.5-5.1); TOTAL PROTEIN 7.4 gm/dL (6.4-8.2)
[2021-01-11 08:00] VITALS: BP 150/55
[2021-01-11 16:00] VITALS: BP 129/54
[2021-01-11 20:00] VITALS: BP 141/54
[2021-01-12] VITALS: BP 135/64
[2021-01-12 04:07] LABS: HEP B CORE AB TOTAL Negative (Negative); HEPATITIS B SURFACE AB Non Reactive (.); HEPATITIS B SURFACE AG Negative (Negative)
[2021-01-12 06:07] LABS: HEMATOCRIT 29.8 % (37.0-47.0); MEAN CORPUSCULAR HGB 28.7 pg (27.0-31.0); MEAN CORPUSCULAR HGB CONC 31.9 g/dl (33.0-37.0); MEAN PLATELET VOLUME 10.9 fl (9.6-12.3); PLATELET COUNT AUTOMATED 194 10*3/uL (130-400); RED BLOOD COUNT 3.31 10*6/uL (4.10-5.10); RED CELL DISTRI WIDTH 19.4 % (0-14.5)
[2021-01-12 06:37] LABS: ALBUMIN 3.2 gm/dl (3.1-4.5); POTASSIUM 3.9 mmol/L (3.5-5.1)
[2021-01-12 06:39] LABS: CREATININE 4.61 mg/dL (0.55-1.02); TOTAL PROTEIN 7.3 gm/dL (6.4-8.2)
[2021-01-12 07:29] LABS: TOTAL CELLS COUNTED 100 #CELLS
[2021-01-12 07:30] LABS: PLATELET SUFFICIENCY NORMAL (NORMAL)
[2021-01-12 08:00] VITALS: BP 149/58
[2021-01-12 12:00] VITALS: BP 130/52
[2021-01-12 16:00] VITALS: BP 131/41
[2021-01-12 20:00] VITALS: BP 138/55
[2021-01-13 07:29] LABS: HEMATOCRIT 29.3 % (37.0-47.0); MEAN CORPUSCULAR HGB 27.6 pg (27.0-31.0); MEAN CORPUSCULAR HGB CONC 30.4 g/dl (33.0-37.0); PLATELET COUNT AUTOMATED 165 10*3/uL (130-400); RED BLOOD COUNT 3.22 10*6/uL (4.10-5.10); RED CELL DISTRI WIDTH 19.6 % (0-14.5); WHITE BLOOD COUNT 24.1 10*3/uL (4.8-10.8)
[2021-01-13 07:37] LABS: ALBUMIN 2.8 gm/dl (3.1-4.5); CREATININE 3.86 mg/dL (0.55-1.02); POTASSIUM 3.8 mmol/L (3.5-5.1)
[2021-01-13 08:00] VITALS: BP 136/60
[2021-01-13 08:01] LABS: PLATELET SUFFICIENCY NORMAL (NORMAL); TOTAL CELLS COUNTED 100 #CELLS
[2021-01-13 12:00] VITALS: BP 131/54
[2021-01-13 16:00] VITALS: BP 123/55
[2021-01-13 20:00] VITALS: BP 126/44
[2021-01-14] VITALS: BP 132/60
[2021-01-14 04:33] LABS: HEMATOCRIT 27.6 % (37.0-47.0); MEAN CELL VOLUME 90.5 fl (81.0-99.0); MEAN CORPUSCULAR HGB 28.2 pg (27.0-31.0); MEAN CORPUSCULAR HGB CONC 31.2 g/dl (33.0-37.0); MEAN PLATELET VOLUME 11.1 fl (9.6-12.3); PLATELET COUNT AUTOMATED 170 10*3/uL (130-400); RED BLOOD COUNT 3.05 10*6/uL (4.10-5.10); RED CELL DISTRI WIDTH 19.8 % (0-14.5); WHITE BLOOD COUNT 24.7 10*3/uL (4.8-10.8)
[2021-01-14 04:56] LABS: ALBUMIN 2.8 gm/dl (3.1-4.5); POTASSIUM 3.7 mmol/L (3.5-5.1)
[2021-01-14 05:00] LABS: CREATININE 4.51 mg/dL (0.55-1.02); TOTAL PROTEIN 6.7 gm/dL (6.4-8.2)
[2021-01-14 05:11] LABS: PLATELET SUFFICIENCY NORMAL (NORMAL); TOTAL CELLS COUNTED 100 #CELLS
[2021-01-14 10:36] VITALS: BP 133/57
[2021-01-14 12:00] VITALS: BP 136/50
[2021-01-14 16:00] VITALS: BP 132/57
[2021-01-14 20:00] VITALS: BP 126/56
[2021-01-15] VITALS: BP 122/40
[2021-01-15 05:48] LABS: CREATININE 3.74 mg/dL (0.55-1.02)
[2021-01-15 08:00] VITALS: BP 128/51
[2021-01-15 12:00] VITALS: BP 122/59
[2021-01-15 16:00] VITALS: BP 142/60
[2021-01-15 20:00] VITALS: BP 130/62
[2021-01-16] VITALS: BP 124/48
[2021-01-16 06:31] LABS: CREATININE 4.53 mg/dL (0.55-1.02); POTASSIUM 4.4 mmol/L (3.5-5.1)
[2021-01-16 08:00] VITALS: BP 134/62
[2021-01-16 12:00] VITALS: BP 114/50
[2021-01-16 16:00] VITALS: BP 104/54
[2021-01-16 20:00] VITALS: BP 122/77
[2021-01-17] VITALS: BP 135/39
[2021-01-17 06:08] LABS: HEMATOCRIT 27.4 % (37.0-47.0); MEAN CELL VOLUME 89.5 fl (81.0-99.0); MEAN CORPUSCULAR HGB 27.8 pg (27.0-31.0); MEAN PLATELET VOLUME 11.2 fl (9.6-12.3); PLATELET COUNT AUTOMATED 197 10*3/uL (130-400); RED BLOOD COUNT 3.06 10*6/uL (4.10-5.10); RED CELL DISTRI WIDTH 20.1 % (0-14.5); WHITE BLOOD COUNT 35.6 10*3/uL (4.8-10.8)
[2021-01-17 06:24] LABS: ALBUMIN 2.2 gm/dl (3.1-4.5); CREATININE 5.09 mg/dL (0.55-1.02); POTASSIUM 4.7 mmol/L (3.5-5.1); TOTAL PROTEIN 6.7 gm/dL (6.4-8.2)
[2021-01-17 06:50] LABS: PLATELET SUFFICIENCY NORMAL (NORMAL); POLYCHROMASIA SLIGHT; TOTAL CELLS COUNTED 100 #CELLS
[2021-01-17 08:00] VITALS: BP 129/49
[2021-01-17 12:00] VITALS: BP 123/51
[2021-01-17 16:00] VITALS: BP 124/42
[2021-01-17 20:00] VITALS: BP 117/49
[2021-01-18] VITALS: BP 116/49
[2021-01-18 08:00] VITALS: BP 128/48
== END 2021-01-18 11:27 | disposition hospice, inpatient (51) | DRG 291 ==
LOC: ED 10:03 → EDHOLD 11:47 → 4E 11:47
PROVIDERS: Emergency Medicine; Internal Medicine; Internal Medicine Cardiovascular Disease; Internal Medicine Nephrology; Registered Nurse; Social Worker Clinical; Student in an Organized Health Care Education/Training Program; ADMIT Internal Medicine; ATTEND Internal Medicine
PROC: 5A0935A Assistance with Respiratory Ventilation, Less than 24 Consecutive Hours, High Flow/Velocity Cannula (ICD-10-PCS; 2021-01-09)
PROC: 5A0945A Assistance with Respiratory Ventilation, 24-96 Consecutive Hours, High Flow/Velocity Cannula (ICD-10-PCS; principal; 2021-01-10)
PROC: 5A0935A Assistance with Respiratory Ventilation, Less than 24 Consecutive Hours, High Flow/Velocity Cannula (ICD-10-PCS; 2021-01-17)
DX: I13.0 Hypertensive heart and chronic kidney disease with heart failure and stage 1 through stage 4 chronic kidney disease, or unspecified chronic kidney disease (principal); I50.33 Acute on chronic diastolic (congestive) heart failure; E44.0 Moderate protein-calorie malnutrition; D68.9 Coagulation defect, unspecified; I48.21 Permanent atrial fibrillation; K92.2 Gastrointestinal hemorrhage, unspecified; Z68.45 Body mass index [BMI] 70 or greater, adult; N17.9 Acute kidney failure, unspecified; E11.22 Type 2 diabetes mellitus with diabetic chronic kidney disease; J98.9 Respiratory disorder, unspecified; M10.9 Gout, unspecified; Z20.822 Contact with and (suspected) exposure to COVID-19; I27.20 Pulmonary hypertension, unspecified; I25.10 Atherosclerotic heart disease of native coronary artery without angina pectoris; E78.5 Hyperlipidemia, unspecified; D64.9 Anemia, unspecified; F32.9 Major depressive disorder, single episode, unspecified; I48.0 Paroxysmal atrial fibrillation; E03.9 Hypothyroidism, unspecified; K21.9 Gastro-esophageal reflux disease without esophagitis; E11.65 Type 2 diabetes mellitus with hyperglycemia; E87.6 Hypokalemia; Z51.5 Encounter for palliative care; Z90.49 Acquired absence of other specified parts of digestive tract; Z79.4 Long term (current) use of insulin; Z99.81 Dependence on supplemental oxygen; Z95.1 Presence of aortocoronary bypass graft; Z90.710 Acquired absence of both cervix and uterus; Z95.5 Presence of coronary angioplasty implant and graft; Z82.49 Family history of ischemic heart disease and other diseases of the circulatory system; Z88.2 Allergy status to sulfonamides; Z79.51 Long term (current) use of inhaled steroids; Z79.899 Other long term (current) drug therapy; N18.30 Chronic kidney disease, stage 3 unspecified

== ENCOUNTER 2021-01-18 11:39 | Inpatient (IN) | payer OTHER, MEDICARE ==
[~2021-01-18] VITALS: Ht 162.6 cm; Wt 96.6 kg
[2021-01-18 12:00] VITALS: BP 116/60
[2021-01-18 16:00] VITALS: BP 133/44
[2021-01-18 20:21] VITALS: BP 131/40
[2021-01-19 02:07] VITALS: BP 133/38
== END 2021-01-19 05:45 | DRG 292 ==
LOC: 4E 11:39
PROVIDERS: ADMIT Internal Medicine; ATTEND Internal Medicine
PROC: 5A0935A Assistance with Respiratory Ventilation, Less than 24 Consecutive Hours, High Flow/Velocity Cannula (ICD-10-PCS; principal; 2021-01-18)
DX: I13.0 Hypertensive heart and chronic kidney disease with heart failure and stage 1 through stage 4 chronic kidney disease, or unspecified chronic kidney disease (principal); N18.4 Chronic kidney disease, stage 4 (severe); I50.30 Unspecified diastolic (congestive) heart failure; K92.2 Gastrointestinal hemorrhage, unspecified; E11.22 Type 2 diabetes mellitus with diabetic chronic kidney disease; E87.6 Hypokalemia; I27.20 Pulmonary hypertension, unspecified; I25.10 Atherosclerotic heart disease of native coronary artery without angina pectoris; Z51.5 Encounter for palliative care; E78.5 Hyperlipidemia, unspecified; F32.9 Major depressive disorder, single episode, unspecified; I48.91 Unspecified atrial fibrillation; K21.9 Gastro-esophageal reflux disease without esophagitis